=== PATIENT | female | born 1955 | race Caucasian/White ===

== ENCOUNTER → 2017-10-13 | Outpatient (CLI) | payer BC ==
--- NOTE | 2017-10-16 09:57 | RADIOLOGY IMAGING REPORT ---
FACILITY: [facility] - [place] PATIENT NAME: MARA ZACARIAS : [id number] MR: [id number] V: [id number] EXAM DATE: ORDERING PHYSICIAN: ROYAL KEE TECHNOLOGIST: Gisela Burger PROCEDURE:BILATERAL DIGITAL SCREENING MAMMOGRAM WITH CAD ASSISTED INTERPRETATION AND 3D BREAST TOMOSYNTHESIS. COMPARISON:Prior mammograms dated 04/21/16, , 08/06/15 and07/31/15. INDICATIONS:SCREENING. FINDINGS: A small amount of fibroglandular tissue is seen throughout the breasts. The parenchymal pattern has remained stable when allowing for difference in mammographic technique and patient positioning. There is a stereotactic biopsy clip in the medial inferior right breast. There is no demonstration of malignant appearing mass or calcification in either breast. DIAGNOSTIC CATEGORY 2--BENIGN FINDING. RECOMMENDATIONS: ROUTINE MAMMOGRAM AND CLINICAL EVALUATION. IMPRESSION: Bi-RADS 2: No significant abnormality is seen. Images were reviewed with R2CAD and 3D breast tomosynthesis. Dictated by: Federica Teixeira M.D. on 10/13/2017 at 11:06 Transcribed by: SRINIVASA on 10/15/2017 at 19:35 Approved by: Federica Teixeira M.D. on 10/16/2017 at 9:56 [facility]
== END ==
LOC: MAMO 00:51
PROVIDERS: ATTEND Family Medicine
DX: Z12.31 Encounter for screening mammogram for malignant neoplasm of breast (principal)
CPT/HCPCS: 77063; 77067

== ENCOUNTER 2017-12-25 06:59 | Inpatient (IN) | payer BC ==
[2017-12-25] VITALS (46 sets, daily range): BP systolic 60–108; BP diastolic 40–91
[2017-12-25] MEDS ORDERED: LISI20TA29 PO (07:15)
[2017-12-25] MEDS ORDERED: NS(*) 0.9% 1000 ML BAG 1,000 ML IV ONE ×2 (07:30→08:58)
[2017-12-25 07:39] LABS: PLATELET COUNT, AUTOMATED 343 K/uL (150-450)
[2017-12-25 07:51] LABS: INR 1.02
[2017-12-25] MEDS ORDERED: IOPAMIDOL 76% 75 ML INFUS BTL 75 ML ONE (07:52)
--- NOTE | 2017-12-25 08:04 | ER Report ---
History and Physical Time Seen By MD: 07:00 Hx. of Stated Complaint: PATIENT REPORTS ABDOMINAL PAIN FOR 5 DAYS. SHE WAS GOING TO VISIT HER PRIMARY CARE PROVIDER TODAY BUT SHE REPORTS THROWING UP A "GALLON" OF BLOOD HPI/ROS No previous abdominal surgeries, no heavy alcohol use, no NSAIDS, no history of PUD. Midepigastric abdominal pain for 5 days. Multiple episodes of hematochezia starting today as well an episode of hematemesis. Hypotensive and tachycardic upon arrival. No lower abdominal pain, no trauma, no fever/chills. Remainder of the 14 system rev: Yes Allergies: Coded Allergies: erythromycin base (Verified Allergy, Intermediate, GI DISTRESS, 12/25/17) tetracycline (Verified Allergy, Intermediate, 12/25/17) Home Meds Reported Medications Lisinopril (LISINOPRIL) 20 Mg Tablet, 20 MG PO QDAY, TAB 12/25/17 Reviewed Nurses Notes: Yes Old Medical Records Reviewed: Yes Hx Smoking: Yes Smoking Status: Current: Every Day Smoker Hx Substance Use Disorder: No Hx Alcohol Use: Yes Family History of: HTN Constitutional Vital Sign - Last 24 Hours 12/25/17 12/25/17 12/25/17 12/25/17 06:59 07:04 07:07 07:08 Temp 97.9 Pulse ??? 101 Resp 20 B/P (MAP) 151/142 (145) 63/45 (51) Pulse Ox 92 O2 Delivery Room Air 12/25/17 12/25/17 12/25/17 12/25/17 07:09 07:11 07:13 07:18 Pulse ??? B/P (MAP) 79/63 (68) 78/66 (70) 76/58 (64) 12/25/17 12/25/17 12/25/17 12/25/17 07:19 07:29 07:30 07:32 Pulse 101 95 Resp 27 14 B/P (MAP) 77/60 (66) 78/47 (57) Pulse Ox 91 12/25/17 12/25/17 12/25/17 12/25/17 07:37 07:40 07:47 07:50 Pulse 90 90 Resp 16 13 B/P (MAP) 80/50 (60) 75/47 (56) Pulse Ox 92 92 12/25/17 12/25/17 12/25/1719/18 08:07 08:10 08:17 08:20 Pulse 84 89 Resp 12 B/P (MAP) 82/54 (63) 85/57 (66) Pulse Ox 89 Intake and Output 12/25/17 12/25/17 12/26/17 15:00 23:00 07:00 Intake Total 1000 ml Balance 1000 ml Physical Exam General Appearance: The patient is alert, has no immediate need for airway protection and no signs of toxicity. Eyes: Pupils equal and round no pallor or injection. ENT, Mouth: Mucous membranes are moist. Respiratory: There are no retractions, lungs are clear to auscultation. Cardiovascular: Regular rate and rhythm no m/r/g Gastrointestinal: Abdomen is soft and not distended, no masses, bowel sounds normal. Midepigastric TTP Neurological: motor/sensation grossly normal Skin: Warm and dry, no rashes. Musculoskeletal: Neck is supple non tender. Rectal exam: Dark brown and grossly bloody stool at rectum. DIFFERENTIAL DIAGNOSIS: After history and physical exam differential diagnosis was considered for abdominal pain including but not limited to upper GI bleed, gastritis, perforated ulcer, and infection. Medical Decision Making Data Points Result Diagram: 12/25/17 0712 12/25/17 0712 Laboratory Hematology Test 12/25/17 07:12 12/25/17 07:20 12/25/17 07:42 Red Blood Count 5.95 M/uL (4.17-5.56) Mean Corpuscular Volume 83.9 fL (80.0-96.0) Mean Corpuscular Hemoglobin 27.1 pg (26.0-33.0) Mean Corpuscular Hemoglobin Concent 32.3 g/dL (32.0-36.0) Red Cell Distribution Width 18.0 % (11.5-14.5) Mean Platelet Volume 9.2 fL (7.2-11.1) Neutrophils (%) (Auto) 77.5 % (39.4-72.5) Lymphocytes (%) (Auto) 13.2 % (17.6-49.6) Monocytes (%) (Auto) 8.2 % (4.1-12.4) Eosinophils (%) (Auto) 0.1 % (0.4-6.7) Basophils (%) (Auto) 1.0 % (0.3-1.4) Nucleated RBC Relative Count (auto) 0.0 /100WBC Neutrophils # (Auto) 13.8 K/uL (2.0-7.4) Lymphocytes # (Auto) 2.3 K/uL (1.3-3.6) Monocytes # (Auto) 1.5 K/uL (0.3-1.0) Eosinophils # (Auto) 0.0 K/uL (0.0-0.5) Basophils # (Auto) 0.2 K/uL (0.0-0.1) Nucleated RBC Absolute Count (auto) 0.01 K/uL Prothrombin Time 13.4 seconds (12.0-14.4) Prothromb Time International Ratio 1.02 Activated Partial Thromboplast Time 26 seconds (23-35) Sodium Level 136 mmol/L (137-145) Potassium Level 4.4 mmol/L (3.5-5.0) Chloride Level 100 mmol/L (98-107) Carbon Dioxide Level 21 mmol/L (22-31) Blood Urea Nitrogen 49 mg/dl (7-18) Creatinine 1.00 mg/dl (0.52-1.04) Glomerular Filtration Rate Calc 56.6 Random Glucose 157 mg/dl (75-110) Calcium Level 9.2 mg/dl (8.4-10.2) Total Bilirubin 0.6 mg/dl (0.2-1.3) Aspartate Amino Transf (AST/SGOT) 17 U/L (0-35) Alanine Aminotransferase (ALT/SGPT) 21 U/L (0-56) Alkaline Phosphatase 99 U/L (0-126) Total Protein 7.5 gm/dl (6.3-8.2) Albumin 4.2 g/dl (3.5-5.0) Lipase 92 U/L (23-300) Stool Occult Blood (IFOB) Positive (NEGATIVE) Lactate 1.3 mmol/L (0.7-2.1) Chemistry Test 12/25/17 07:12 12/25/17 07:20 12/25/17 07:42 White Blood Count 17.7 k/uL (4.5-11.0) Red Blood Count 5.95 M/uL (4.17-5.56) Hemoglobin 16.1 g/dL (12.0-16.0) Hematocrit 49.9 % (34.0-47.0) Mean Corpuscular Volume 83.9 fL (80.0-96.0) Mean Corpuscular Hemoglobin 27.1 pg (26.0-33.0) Mean Corpuscular Hemoglobin Concent 32.3 g/dL (32.0-36.0) Red Cell Distribution Width 18.0 % (11.5-14.5) Platelet Count 343 K/uL (150-450) Mean Platelet Volume 9.2 fL (7.2-11.1) Neutrophils (%) (Auto) 77.5 % (39.4-72.5) Lymphocytes (%) (Auto) 13.2 % (17.6-49.6) Monocytes (%) (Auto) 8.2 % (4.1-12.4) Eosinophils (%) (Auto) 0.1 % (0.4-6.7) Basophils (%) (Auto) 1.0 % (0.3-1.4) Nucleated RBC Relative Count (auto) 0.0 /100WBC Neutrophils # (Auto) 13.8 K/uL (2.0-7.4) Lymphocytes # (Auto) 2.3 K/uL (1.3-3.6) Monocytes # (Auto) 1.5 K/uL (0.3-1.0) Eosinophils # (Auto) 0.0 K/uL (0.0-0.5) Basophils # (Auto) 0.2 K/uL (0.0-0.1) Nucleated RBC Absolute Count (auto) 0.01 K/uL Prothrombin Time 13.4 seconds (12.0-14.4) Prothromb Time International Ratio 1.02 Activated Partial Thromboplast Time 26 seconds (23-35) Glomerular Filtration Rate Calc 56.6 Calcium Level 9.2 mg/dl (8.4-10.2) Total Bilirubin 0.6 mg/dl (0.2-1.3) Aspartate Amino Transf (AST/SGOT) 17 U/L (0-35) Alanine Aminotransferase (ALT/SGPT) 21 U/L (0-56) Alkaline Phosphatase 99 U/L (0-126) Total Protein 7.5 gm/dl (6.3-8.2) Albumin 4.2 g/dl (3.5-5.0) Lipase 92 U/L (23-300) Stool Occult Blood (IFOB) Positive (NEGATIVE) Lactate 1.3 mmol/L (0.7-2.1) Coagulation Test 12/25/17 07:12 Prothrombin Time 13.4 seconds Prothromb Time International Ratio 1.02 Activated Partial Thromboplast Time 26 seconds ED Course/Re-evaluation Clinical Indication for ER IV: Hypotention ED Course This patient is a 62-year-old female every day tobacco smoker. Past medical history significant for hypertension for which she takes lisinopril daily. She did not take her lisinopril today. She presented to the emergency department with 5 days of mid epigastric pain followed by multiple episodes of hematochezia this morning. She was hypotensive upon arrival to the emergency department with a systolic blood pressure in the 80s as well as tachycardia. She received 1 L of normal saline initially, and was typed and crossed for 2 units of packed red blood cells. She does not take any blood thinning medications. She denies NSAID use, previous PUD, and says she drinks 2-3 alcoholic beverages per week. No abdominal surgeries. Her physical exam was significant for a moderate amount of dark and bloody stool at the anus. Her H&H is currently normal, however given the symptoms started this morning and repeat H&H will be sent by Dr. Puente in a few hours. We will hold off on transfusion at this time, and continue with crystalloid resuscitation. She was given a bolus of Protonix, and started on a Protonix drip. Given her history no need for octreotide. A CT scan of the abdomen and pelvis was unremarkable. She currently has 2 large-bore peripheral IVs. She will be admitted to the ICU under the care of of Dr. Puente Decision to Disposition Date: Dec 25, 2017 Decision to Disposition Time: 09:16 Critical Care Time I spent a total of 30 minutes of critical care time in obtaining history, performing a physical exam, bedside monitoring of interventions, collecting and interpreting tests and discussion with consultants but not including time spent performing procedures. Depart Departure Latest Vital Signs Vital Signs Date Time Temp Pulse Resp B/P (MAP) Pulse Ox O2 Delivery O2 Flow Rate FiO2 12/25/17 08:20 85/57 (66) 12/25/17 08:17 89 12/25/17 08:07 12 89 12/25/17 07:04 97.9 Room Air Impression: Primary Impression: GI (gastrointestinal hemorrhage) Condition: Improved Disposition: Admitted from ER Referrals: ROYAL KEE DO (PCP) Problem Qualifiers Primary Impression: GI (gastrointestinal hemorrhage) GI bleed type/associated pathology: gastrointestinal hemorrhage with hematemesis Qualified Codes: K92.0 - Hematemesis COOKIE MATOS MD Dec 25, 2017 08:04
[2017-12-25] MEDS ORDERED: PANTOPRAZOLE SOD(*)40 MG VIAL 80 MG in NS(*) 0.9% 100 ML BAG 100 ML IV SCH (08:05)
[2017-12-25] MEDS ORDERED: PANTOPRAZOLE SOD(*)40 MG VIAL 80 MG in NS(*) 0.9% 100 ML BAG 100 ML IVPB ONE (08:05)
--- NOTE | 2017-12-25 08:38 | RADIOLOGY IMAGING REPORT ---
FACILITY: [facility] - [place] PATIENT NAME: Blessing Estrada : 1955 MR: [id number] V: [id number] EXAM DATE: [id number] ORDERING PHYSICIAN: COOKIE MATOS TECHNOLOGIST: Location: [facility] Patient: Blessing Estrada : 1955 Visit/Account:[id number] Date of Sevice: 12/25/2017 Computed tomograpy abdomen and pelvis with IV contrast Indication: GI bleed. Comparison: None available. . Technique: Transaxial computed tomography images were obtained through the abdomen and pelvis follo wing the injection of nonionic iodinated intravenous contrast. Reformatted coronal and sagittal image s were also obtained. One of the following dose optimization techniques was utilized in the performance of this exam: Autom ated exposure control; adjustment of the mA and/or kV according to the patient's size; or use of an i terative reconstruction technique. Specific details can be referenced in the facility's radiology C T exam operational policy. Contrast: 75 ml of Isovue-370 IV contrast. Findings: Lower lung miller: Dependent lower lobe atelectasis is seen bilaterally. Liver: Mild, diffuse fatty liver. No focal parenchymal abnormality. Biliary: Gallbladder appears unremarkable as well as the intra and extra hepatic biliary system. Pancreas: Scattered parenchymal calcifications are seen within the pancreatic head. This could be se quela of prior pancreatitis. No ductal dilatation. Spleen: Normal appearance. Adrenal glands: There is thickening of the bilateral adrenal glands greater on the left than on the r ight. Kidneys / retroperitoneum: No stones or hydronephrosis. There are small bilateral renal cysts. Larg est cyst involves the midpole of the left kidney and measures 15 mm. Bowel / peritoneum / mesenteries: No colonic wall thickening or pericolonic inflammation. The append ix is normal. Small bowel loops are normal in caliber. Lymph node assessment: No pathologic adenopathy identified. Pelvic structures: Appear unremarkable. Prominent pelvic vessels. This finding is not specific b ut has been described with pelvic venous congestion syndrome. No free fluid. Vessels: Diffuse atherosclerotic calcifications seen throughout a nonaneurysmal abdominal aorta and b ranches. The infrarenal abdominal aorta is ectatic measuring up to 2.8 x 2.3 cm in greatest transaxi al dimension. Musculoskeletal / Body wall: Multilevel degenerative changes and facet osteoarthritis involves the [place] mbar spine. There is grade 1 anterolisthesis of L4 upon L5. No compression deformities. IMPRESSION: 1. No acute inflammatory process within the abdomen and the pelvis. 2. Diffuse atherosclerosis with an ectatic infrarenal abdominal aorta. 3. Thickening of the adrenal glands bilaterally more pronounced on the left than on the right. MRI of the adrenal glands could be performed for further evaluation. 4. Simple appearing renal cysts. Report Dictated By: Stoney Sutton at 12/25/2017 8:25 AM Report E-Signed By: Stoney Sutton at 12/25/2017 8:35 AM WSN:[email or web address]
[2017-12-25] MEDS ORDERED: FLUSH 10 ML SYR IVP PRN (09:00)
[2017-12-25] MEDS ORDERED: ONDANSETRON 4 MG/2 ML VIAL IVP PRN (09:00)
--- NOTE | 2017-12-25 09:03 | RADIOLOGY IMAGING REPORT ---
FACILITY: [facility] - [place] PATIENT NAME: Blessing Estrada : 1955 MR: [id number] V: [id number] EXAM DATE: ORDERING PHYSICIAN: COOKIE MATOS TECHNOLOGIST: Location: [facility] - [place] Patient: Blessing Estrada : 1955 Visit/Account:[id number] Date of Sevice: 12/25/2017 CHEST SINGLE AP Indication: Midepigastric pain. Hypoxia. Comparison: 07/31/2015. CT scan of the abdomen and pelvis which includes the lung bases was also rev iewed. Findings: Linear atelectasis seen within both lung bases which was seen on today's CT images. No consolidatio n, effusion or pneumothorax. Heart size and mediastinal contours are normal. IMPRESSION: 1. Linear bibasilar atelectasis. No focal confluent infiltrate. Report Dictated By: Stoney Sutton at 12/25/2017 8:50 AM Report E-Signed By: Stoney Sutton at 12/25/2017 8:58 AM WSN:[email or web address]
[2017-12-25] MEDS: NS(*) 0.9% 1000 ML BAG 1,000 ML IV PRN ×3 (10:12→17:03)
--- NOTE | 2017-12-25 12:18 | Gen Surgery History & Physical ---
History of Present Illness Chief Complaint Epigastric abdominal pain with melena and hematemesis History of Present Illness 62-year-old female presents to the emergency department with a five-day history of mild epigastric discomfort which acutely worsened overnighted about 3 this morning and she had 1 episode of large volume hematemesis with bright red blood per rectum and then 2 episodes of melena. She has no previous history of peptic ulcer disease. She's never had an upper GI endoscopy. She's never had colonoscopy for that matter. She does not take NSAIDs or steroids. She cannot think of any recent stressors. History Problems: (1) Hypertension Status: Chronic (2) History of tonsillectomy and adenoidectomy Status: Chronic Home Meds Reported Medications Lisinopril (LISINOPRIL) 20 Mg Tablet, 20 MG PO QDAY, TAB 12/25/17 Allergies: Coded Allergies: erythromycin base (Verified Allergy, Intermediate, GI DISTRESS, 12/25/17) tetracycline (Verified Allergy, Intermediate, 12/25/17) Review of Systems All Systems Reviewed/Normal: Yes, Except as Noted Gastrointestinal: Hematemesis, Melena, Abdominal Pain Exam General Appearance: Alert, Awake, No Acute Distress, Afebrile Neuro: No Gross deficits Eyes: PERRLA GI: Other (soft, epigastric tenderness to palpation, no peritoneal signs) Extremities: Warm, Perfused Medical Decision Making Data Points Result Diagram: 12/25/17 1104 12/25/17 0712 Assessment and Plan Problems: (1) GI (gastrointestinal hemorrhage) Status: Acute Assessment & Plan: 12/25/17: Admit, nothing by mouth, IV fluids, PPI drip, will follow H&H and transfuse if she is approaching a hemoglobin of 8. We'll plan on upper GI endoscopy this afternoon, sooner if she so signs of continued acute hemorrhage that needs emergent intervention but at the moment, she seems to have slowed down. Will watch her in the intensive care unit since she was hypotensive and tachycardic in the emergency room although her vitals are currently improved. I have explained this plan to her in detail and she seems agreeable and willing to proceed with it. Condition Guarded Time Spent: < 30 min Venous Thromboembolism VTE Risk Physician Assess for VTE Risk: Yes Patient's VTE Risk: Low VTE Diagnostic Test 2 Days Prior to Admit: No Antithrombotics Is Pt On Any Antithrombotics?: No Prophylaxis Tx Contraindicated Pharmacological Contraindicati: Active Bleeding Problem Qualifiers (1) GI (gastrointestinal hemorrhage): GI bleed type/associated pathology: gastrointestinal hemorrhage with hematemesis Qualified Codes: K92.0 - Hematemesis ERIC SAHU MD Dec 25, 2017 12:18
[2017-12-25] MEDS ORDERED: ALBUMIN HUMAN 5% 250 ML BTL 250 ML IVPB ONE ×2 (14:45→15:45)
--- NOTE | 2017-12-25 16:08 | EKG ---
FACILITY: [facility] PATIENT NAME: MARA ZACARIAS : [id number] MR: [id number] V: [id number] EXAM DATE: ORDERING PHYSICIAN: SEUN ACEVEDO TECHNOLOGIST: BERLIN Gaines Reason : PRE-OP Blood Pressure : / mmHG Vent. Rate : 077 BPM Atrial Rate : 077 BPM P-R Int : 160 ms QRS Dur : 082 ms QT Int : 374 ms P-R-T Axes : 085 090 079 degrees QTc Int : 423 ms Normal sinus rhythm Normal ECG No previous ECGs available Confirmed by WISAM SANTILLAN ([id number]) on 12/25/2017 8:00:03 PM Referred By: KRISTINA Confirmed By:WISAM SANTILLAN
[2017-12-25] MEDS ORDERED: PROPOFOL EMUL(*) 10MG/ML 20 ML 20 ML ONE (16:45)
[2017-12-25] MEDS ORDERED: SUCCINYLCHOL CHL 200MG/10ML VL ONE (16:45)
[2017-12-25] MEDS ORDERED: MIDAZOLAM 2 MG/2 ML VIAL ONE (16:45)
[2017-12-25] MEDS ORDERED: LIDOCAINE MPF 1% 5 ML VIAL ONE (16:45)
[2017-12-25] MEDS ORDERED: ONDANSETRON 4 MG/2 ML VIAL ONE (16:45)
[2017-12-25] MEDS ORDERED: fentaNYL CITR 100 MCG/2 ML AMP ONE (16:45)
[2017-12-25] MEDS ORDERED: DEXAMETHASONE SOD PHOS 10MG/ML ONE (16:45)
[2017-12-25] MEDS ORDERED: NORMOSOL R SOLN(*) 1000 ML BAG 1,000 ML IV PRN (16:50)
[2017-12-25] MEDS: PANTOPRAZOLE SOD(*)40 MG VIAL 80 MG in NS(*) 0.9% 100 ML BAG 100 ML IV SCH (17:08)
[2017-12-25] MEDS ORDERED: ALBUTEROL/IPRATROPIUM 3 ML NEB ONE (17:47)
[2017-12-26] VITALS (15 sets, daily range): BP systolic 90–106; BP diastolic 50–67
[2017-12-26] MEDS: NS(*) 0.9% 1000 ML BAG 1,000 ML IV PRN (00:14)
[2017-12-26] MEDS: PANTOPRAZOLE SOD(*)40 MG VIAL 80 MG in NS(*) 0.9% 100 ML BAG 100 ML IV SCH ×2 (05:12→16:07)
[2017-12-26 05:13] LABS: PLATELET COUNT, AUTOMATED 180 K/uL (150-450)
[2017-12-26] MEDS ORDERED: NS(*) 0.9% 1000 ML BAG 1,000 ML IV PRN (08:34)
--- NOTE | 2017-12-26 08:39 | General Surgery Progress Note ---
Subjective Progress Notes Subjective Pt without complaints. No further BMs, bloody or otherwise. Abdominal pain is better. Physical Exam Vital Signs Date Time Temp Pulse Resp B/P (MAP) Pulse Ox O2 Delivery O2 Flow Rate FiO2 12/26/17 07:43 20 89 Nasal Cannula 6.0 12/26/17 07:22 75 12/26/17 07:20 97.6 95/57 (70) General Appearance: Alert, Awake, No Acute Distress, Afebrile GI: Soft and Non-Tender Extremities: Warm, Perfused Result Diagram: 12/26/17 0450 12/26/17 0450 Assessment and Plan Problems: (1) GI (gastrointestinal hemorrhage) Status: Acute Assessment & Plan: 12/25/17: Admit, nothing by mouth, IV fluids, PPI drip, will follow H&H and transfuse if she is approaching a hemoglobin of 8. We'll plan on upper GI endoscopy this afternoon, sooner if she so signs of continued acute hemorrhage that needs emergent intervention but at the moment, she seems to have slowed down. Will watch her in the intensive care unit since she was hypotensive and tachycardic in the emergency room although her vitals are currently improved. I have explained this plan to her in detail and she seems agreeable and willing to proceed with it. 12/26/17: Doing well. EGD with large duodenal ulcer with adherent clot but no active bleeding. H/H is stable overnight. Will continue PPI gtt for full 24 hours and then convert to PO PPI rx later today. Clear diet this morning. Regular diet this afternoon if no further bleeding. Anticipate d/c to home tomorrow morning if H/H remains stable and no other evidence of continued bleeding. (2) Duodenal ulcer hemorrhage Status: Acute Condition Stable. Time Spent: < 30 min Exam Sepsis Risk: No Definite Risk Problem Qualifiers (1) GI (gastrointestinal hemorrhage): GI bleed type/associated pathology: gastrointestinal hemorrhage with hematemesis Qualified Codes: K92.0 - Hematemesis ERIC SAHU MD Dec 26, 2017 08:39
[2017-12-26] MEDS: SUCRALFATE 1 GM TAB PO SCH ×3 (12:48→20:23)
[2017-12-26] MEDS: PANTOPRAZOLE SOD 40 MG TABEC PO SCH (20:23)
[2017-12-27 05:23] VITALS: BP 109/67
[2017-12-27 06:05] LABS: PLATELET COUNT, AUTOMATED 165 K/uL (150-450)
[2017-12-27] MEDS: SUCRALFATE 1 GM TAB PO SCH (06:36)
[2017-12-27 06:59] VITALS: BP 96/59
[2017-12-27] MEDS ORDERED: PANT40TA65 PO (07:18)
[2017-12-27] MEDS ORDERED: SUCR1TAB51 PO (07:18)
--- NOTE | 2017-12-27 07:21 | Short(Outpt) Discharge Summary ---
Discharge Summary Reason for Hosp/Final Diag: (1) GI (gastrointestinal hemorrhage) Status: Acute Hospital Course & Plan: 12/25/17: Admit, nothing by mouth, IV fluids, PPI drip , will follow H&H and transfuse if she is approaching a hemoglobin of 8. We'll plan on upper GI endoscopy this afternoon, sooner if she so signs of continued acute hemorrhage that needs emergent intervention but at the moment, she seems to have slowed down. Will watch her in the intensive care unit since she was hypotensive and tachycardic in the emergency room although her vitals are currently improved. I have explained this plan to her in detail and she seems agreeable and willing to proceed with it. 12/26/17: Doing well. EGD with large duodenal ulcer with adherent clot but no active bleeding. H/H is stable overnight. Will continue PPI gtt for full 24 hours and then convert to PO PPI rx later today. Clear diet this morning. Regular diet this afternoon if no further bleeding. Anticipate d/c to home tomorrow morning if H/H remains stable and no other evidence of continued bleeding. 12/27/17: Doing well. No further BMs. H/H down slightly, likely equilibrating as no further blood with BMs. Pt asymptomatic at this point. Will d/c to home today. (2) Duodenal ulcer hemorrhage Status: Acute Departure Discharge to: Home, Self Care Discharge Instructions Home Meds Active Scripts Sucralfate (SUCRALFATE) 1 Gm Tablet, 1 TAB PO ACHS1, #120 TAB 0 Refills Take until gone Prov:ERIC SAHU MD 12/27/17 Pantoprazole Sodium (PANTOPRAZOLE SODIUM) 40 Mg Tablet., 1 TAB PO BID, #60 TAB 3 Refills Prov:ERIC SAHU MD 12/27/17 Reported Medications Lisinopril (LISINOPRIL) 20 Mg Tablet, 20 MG PO QDAY, TAB 12/25/17 Follow up Referrals: General Surgery - 01/10/18 @ Surgery, General with Eric Sahu Md You have a follow up appointment scheduled with Dr. Sahu on 01/10/18, at 4: 00pm. Diet: Regular Activity: As Tolerated Special Instructions: Avoid all NSAIDS (ibuprofen, motrin, aleve, advil, naprosyn, naproxen, aspirin, or any medications that contain these). Tylenol (acetaminophen) is OK to take. Problem Qualifiers (1) GI (gastrointestinal hemorrhage): GI bleed type/associated pathology: gastrointestinal hemorrhage with hematemesis Qualified Codes: K92.0 - Hematemesis ERIC SAHU MD Dec 27, 2017 07:21
[2017-12-27] MEDS ORDERED: INFLUENZA VIRUS VAC 0.5 ML SYR IM ONLY ONE (08:00)
[2017-12-27] MEDS: PANTOPRAZOLE SOD 40 MG TABEC PO SCH (08:30)
== END 2017-12-27 09:20 | disposition home or self-care (01) | DRG 379 ==
LOC: ER 07:22 → UNDOADMIN 09:42 → ICU 09:42 → MED 12-26 10:25
PROVIDERS: ADMIT Surgery; ATTEND Surgery
PROC: 0DJ08ZZ Inspection of Upper Intestinal Tract, Via Natural or Artificial Opening Endoscopic (ICD-10-PCS; principal; 2017-12-25 17:11)
DX: K26.0 Acute duodenal ulcer with hemorrhage (principal); I95.9 Hypotension, unspecified; R00.0 Tachycardia, unspecified; F17.210 Nicotine dependence, cigarettes, uncomplicated; I10 Essential (primary) hypertension; Z88.1 Allergy status to other antibiotic agents; Z88.8 Allergy status to other drugs, medicaments and biological substances; Z23 Encounter for immunization
CPT/HCPCS: 36415; 71045; 74177; 82040; 82247; 82274; 82310; 82374; 82435; 82565; 82947; 83605; 83690; 84075; 84132; 84155; 84295; 84450; 84460; 84520; 85014; 85018; 85025; 85610; 85730; 86677; 86850; 86900; 86901; 86920; 90471; 90674; 93005; 94640; 94667; 96361; 96365; 96366; 99285; 99291; C9113; J0330; J1100; J2001; J2250; J2405; J2704; J3010; J7030; J7050; P9045; Q9967

== ENCOUNTER 2018-04-18 00:29 | Day surgery (SDC) | payer BC ==
[~2018-04-18] VITALS: Ht 165.1 cm; Wt 72.1 kg
[~2018-04-18 00:29] MED LIST: ACET-1966 PO; LISI20TA29 PO; PANT40TA65 PO; SUCR1TAB51 PO
[2018-04-18 06:24] VITALS: BP 103/71
[2018-04-18] MEDS ORDERED: NORMOSOL R SOLN(*) 1000 ML BAG 1,000 ML IV PRN (06:30)
[2018-04-18] MEDS ORDERED: LIDOCAINE/SOD BICARB 8.4% SYR ID ONE (06:30)
[2018-04-18] MEDS ORDERED: PROPOFOL EMUL(*) 10MG/ML 20 ML 20 ML ONE ×3 (07:06→07:55)
[2018-04-18 08:23] VITALS: BP 98/70
--- NOTE | 2018-04-18 08:31 | Short(Outpt) Discharge Summary ---
Discharge Summary Reason for Hosp/Final Diag: (1) Family history of colon cancer Hospital Course & Plan: EGD and colonoscopy with polypectomy x6 completed without problems. (2) Duodenal ulcer Status: Acute Departure Discharge to: Home, Self Care Discharge Instructions Home Meds Active Scripts Pantoprazole Sodium (PANTOPRAZOLE SODIUM) 40 Mg Tablet.dr, 1 TAB PO BID, #60 TAB 3 Refills Prov:ERIC SAHU MD 12/27/17 Reported Medications Acetaminophen (TYLENOL) 325 Mg Tablet, 1-2 TAB PO PRN, TAB 01/10/18 Lisinopril (LISINOPRIL) 20 Mg Tablet, 20 MG PO QDAY, TAB 12/25/17 Diet: Regular Activity: As Tolerated Special Instructions: Your EGD and colonoscopy were completed without any problems and your prep was excellent (Good Job!!). Your ulcer is healed and all of your tissues in your esophagus, stomach, and duodenum look healthy. You can decrease the pantoprazole to 40 mg once each day, first thing every morning. You know longer need to take the afternoon/evening dose. I removed 6 small polyps from your colon and they were sent to pathology. My office will call you in the next week or so and let you know what the polyps are and when your next colonoscopy should be (either 3 or 5 years) depending on path results. ERIC SAHU MD Apr 18, 2018 08:31
[2018-04-18 08:47] VITALS: BP 119/89
[2018-04-18 08:50] VITALS: BP 105/70
[2018-04-18] MEDS ORDERED: PANT40TA65 PO (09:09)
== END 2018-04-18 09:10 | disposition home or self-care (01) ==
LOC: OR 00:29
PROVIDERS: ATTEND Surgery
DX: Z12.11 Encounter for screening for malignant neoplasm of colon (principal); K63.5 Polyp of colon; Z80.0 Family history of malignant neoplasm of digestive organs
CPT/HCPCS: 00811; 43235; 45385; 88305; J2704

== ENCOUNTER → 2019-01-04 | Outpatient (CLI) | payer BC ==
--- NOTE | 2019-01-04 11:47 | RADIOLOGY IMAGING REPORT ---
FACILITY: [facility] PATIENT NAME: Blessing Estrada : 1955 MR: [id number] V: [id number] EXAM DATE: ORDERING PHYSICIAN: ROYAL KEE TECHNOLOGIST: [place] [facility] [place] Estr[place] : 1955 Visit/Account:[id number] Date of Sevice: 01/04/2019 CHEST PA LAT COMPARISON: Single view chest 12/25/2017 HISTORY: Cough, lung wheezing FINDINGS: CARDIAC/VASC: No cardiac silhouette abnormality or cardiomegaly. Unremarkable pulmonary vasculatu re. MEDIASTINUM: No visible mass or adenopathy. LUNGS/PLEURA: No pneumothorax. Mildly hyperinflated lungs with interstitial prominence in both lung bases, left more than right, probably asymmetric parenchymal scarring on a background of mild COPD, early consolidation in the left lower lobe is difficult to exclude. BONES: No fracture or visible bony lesion. OTHER:Negative. IMPRESSION: Hyperinflated lungs suggesting acute or chronic air-trapping. Asymmetric interstitial prominence rajeev ng bases, probably scarring but difficult to exclude early consolidation in the left lower lobe. Report Dictated By: Dhruv Chowdary at 01/04/2019 11:41 AM Report E-Signed By: Dhruv Chowdary at 01/04/2019 11:43 AM WSN:[email or web address]
== END ==
LOC: RAD 10:32
PROVIDERS: ATTEND Family Medicine
DX: R91.8 Other nonspecific abnormal finding of lung field (principal)
CPT/HCPCS: 71046

== ENCOUNTER → 2019-01-29 | Outpatient (CLI) | payer BC ==
--- NOTE | 2019-01-30 08:27 | RADIOLOGY IMAGING REPORT ---
FACILITY: [facility] PATIENT NAME: MARA ZACARIAS : [id number] MR: [id number] V: [id number] EXAM DATE: [id number] ORDERING PHYSICIAN: ROYAL KEE TECHNOLOGIST: Mattie Winters PROCEDURE:BILATERAL DIGITAL SCREENING MAMMOGRAM WITH CAD ASSISTED INTERPRETATION & 3D TOMOSYNTHESIS COMPARISON:Prior mammograms 10/13/17, 04/21/16, 08/06/15, 07/31/15. INDICATIONS:screening FINDINGS: There are scattered areas of fibroglandular density throughout the breasts. The parenchymal pattern has remained stable allowing for difference in mammographic technique & patient positioning. Again noted is a biopsy clip in the medial inferior portion of the Right breast. DIAGNOSTIC CATEGORY 2--BENIGN FINDING. RECOMMENDATIONS: ROUTINE MAMMOGRAM AND CLINICAL EVALUATION. IMPRESSION: BIRADS 2: Benign finding. No significant abnormality is seen. Dictated by: Federica Teixeira M.D. on 01/29/2019 at 16:14 Transcribed by: AMRIT on 01/30/2019 at 8:00 Approved by: Federica Teixeira M.D. on 01/30/2019 at 8:26 [facility]
== END ==
LOC: MAMO 01:09
PROVIDERS: ATTEND Family Medicine
DX: Z12.31 Encounter for screening mammogram for malignant neoplasm of breast (principal)
CPT/HCPCS: 77063; 77067